=== PATIENT | male | born 1955 | race Caucasian/White ===

== ENCOUNTER 2020-11-18 15:25 | Outpatient (CLI) | payer BC, SELFPAY ==
--- NOTE | ~2020-11-18 | XR_ITS ---
XR abdomen/kub 1V DATE: 11/18/2020 16:07 INDICATION: Left flank pain for 6 days. History of kidney stones. TECHNIQUE: AP projection, 3 views COMPARISON: 11/18/[address] abdomen pelvis FINDINGS: Prominent degenerative spurring of the thoracic and lumbar spine. 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 The psoas shadows are intact. No visceromegaly is evident. There is no evidence of bowel obstruction. No urinary tract calcification is evident. IMPRESSION: Nonspecific abdomen Reviewed, dictated and finalized at [facility]. Reviewed, dictated and finalized at [facility]. IMPRESSION: Nonspecific abdomen
--- NOTE | ~2020-11-18 | CT_ITS ---
EXAMINATION: CT abdomen pelvis wo con DATE: 11/18/2020 15:54 INDICATION: Left flank pain TECHNIQUE: Computed tomography (CT) of the abdomen and pelvis was performed without intravenous contr ast. Automated exposure control and iterative reconstruction technique were employed. Exam dose: 162 1.85 mGy-cm total exam DLP. COMPARISON: None. FINDINGS: Right foramen of [place] fat-containing hernia. There is atelectasis at the posteromedial right lung base adjacent to the hernia. Small fat-containing left foramen of [place] hernia. Mild discoid atelectasis or scarring in the middle lobe, lingula and left lower lobe. Borderline heart size. No pericardial or pleural effusion. Coronary artery calcifications. No hepatic space-occupying mass is evident on this limited noncontrast examination. There is suggesti on of cholelithiasis. Consider gallbladder ultrasound for confirmation. No bile duct or pancreatic du ct dilatation. No pancreatic mass lesion or calcification. Normal splenic size. Normal morphology of the adrenal glands. No renal mass lesion is evident on this noncontrast examination. No urinary tract calculus or hydrour eteronephrosis. The urinary bladder is unremarkable. There are prostate calcifications. There is calc ification of the origin of both renal arteries. Abdominal aortic calcification. No abdominal aortic a neurysm. No intraperitoneal or retroperitoneal or pelvic mass lesion or adenopathy or ascites is evid ent. No appendiceal dilatation or appendiceal wall thickening or periappendiceal fat stranding. There is a prominent amount of fecal material in the rectum and colon but no bowel obstruction is ana dent. No intraperitoneal free air. Very small fat-containing umbilical hernia. Diffuse idiopathic skeletal hyperostosis of the thoracic spine. 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 No suspicious osteolytic or osteoblastic lesions are noted. IMPRESSION: No urinary tract calculus or hydroureteronephrosis Suspected cholelithiasis; consider gallbladder ultrasound Reviewed, dictated and finalized at [facility]. Reviewed, dictated and finalized at [facility].
== END 2020-11-18 15:26 | disposition home or self-care (01) ==
PROVIDERS: Visit Provider Nurse Practitioner Family
DX: R10.9 Unspecified abdominal pain (principal)
CPT/HCPCS: 74018; 74176